=== PATIENT | male | born 1980 | race Caucasian/White ===

== ENCOUNTER 2016-10-10 10:50 | Emergency (ER) | payer BC ==
[~2016-10-10] VITALS: Ht 182.8 cm; Wt 127.0 kg
[~2016-10-10 10:50] MED LIST: ACULAR 0.5%3 ML OPH; BACTRIM DS 8001 TA1 PO; CLINDAMYCIN150 MG PO; CYCLOBENZAPRINE10 MG PO; FLEXERIL10 MG PO; KEFLEX500 MG PO; MEDROL DOSEPAK4 MG PO; MOTRIN800 MG PO; NAPROSYN500 MG PO; RITE AID ACID150 MG PO; ROBAXIN750 MG PO; TRAMADOL HCL50 MG PO; VICODIN ES 7501 TAB PO
[2016-10-10 11:47] VITALS: BP 141/84
[2016-10-10] MEDS ORDERED: Motrin,Rufen800 MG PO (12:27)
[2016-10-10] MEDS ORDERED: CLINDAMYCIN HC300 MG PO (12:27)
[2016-10-10] MEDS ORDERED: Peridex 473 ML473 ML PO (12:27)
[2016-10-10] MEDS ORDERED: LIDOCAINE VISC100 ML MM (12:27)
== END 2016-10-10 12:30 | disposition home or self-care (01) ==
LOC: ED 10:50
DX: K08.89 Other specified disorders of teeth and supporting structures (principal); F17.200 Nicotine dependence, unspecified, uncomplicated; Z88.0 Allergy status to penicillin

== ENCOUNTER 2018-09-04 05:23 | Emergency (ER) | payer BC ==
[~2018-09-04] VITALS: Ht 190.5 cm; Wt 122.5 kg
[2018-09-04 05:23] VITALS: BP 128/76
[~2018-09-04 05:23] MED LIST changes: +CLINDAMYCIN HC300 MG PO; +LIDOCAINE VISC100 ML MM; +Motrin,Rufen800 MG PO; +Peridex 473 ML473 ML PO
[2018-09-04] MEDS ORDERED: CHLORASEPTIC 1177 ML MM (05:51)
== END 2018-09-04 06:28 | disposition home or self-care (01) ==
LOC: ED 05:23
DX: J06.9 Acute upper respiratory infection, unspecified (principal); F17.200 Nicotine dependence, unspecified, uncomplicated; Z88.0 Allergy status to penicillin

== ENCOUNTER 2018-10-08 06:41 | Emergency (ER) | payer BC ==
[~2018-10-08] VITALS: Ht 185.4 cm; Wt 122.5 kg
[~2018-10-08 06:41] MED LIST changes: +CHLORASEPTIC 1177 ML MM
[2018-10-08 06:43] VITALS: BP 133/74
[2018-10-08] MEDS ORDERED: Motrin,Rufen800 MG PO (08:31)
[2018-12-17] MEDS ORDERED: XARE15TA PO (16:08)
== END 2018-10-08 08:36 | disposition home or self-care (01) ==
LOC: ED 06:41
DX: S60.221A Contusion of right hand, initial encounter (principal); Z88.0 Allergy status to penicillin; W23.0XXA Caught, crushed, jammed, or pinched between moving objects, initial encounter; Y93.89 Activity, other specified; Y92.89 Other specified places as the place of occurrence of the external cause; Y99.8 Other external cause status

== ENCOUNTER 2018-12-02 18:20 | Emergency (ER) | payer BC ==
[~2018-12-02] VITALS: Ht 185.4 cm; Wt 127.0 kg
[2018-12-02 18:21] VITALS: BP 154/84
[2018-12-17] MEDS ORDERED: XARE15TA PO (16:08)
== END 2018-12-02 20:20 | disposition home or self-care (01) ==
LOC: ED 18:20
DX: S92.324A Nondisplaced fracture of second metatarsal bone, right foot, initial encounter for closed fracture (principal); J45.909 Unspecified asthma, uncomplicated; F17.200 Nicotine dependence, unspecified, uncomplicated; Z88.0 Allergy status to penicillin; W22.8XXA Striking against or struck by other objects, initial encounter; Y93.89 Activity, other specified; Y92.89 Other specified places as the place of occurrence of the external cause; Y99.8 Other external cause status

== ENCOUNTER → 2018-12-17 | Outpatient (CLI) | payer BC ==
[~2018-12-17] MED LIST changes: +XARE15TA PO
== END | disposition home or self-care (01) ==
LOC: US 13:56
DX: I82.4Z1 Acute embolism and thrombosis of unspecified deep veins of right distal lower extremity (principal)

== ENCOUNTER 2019-04-12 09:51 | Emergency (ER) | payer BC ==
[~2019-04-12] VITALS: Ht 185.4 cm; Wt 127.0 kg
[2019-04-12 09:53] VITALS: BP 134/70
== END 2019-04-12 11:30 | disposition home or self-care (01) ==
LOC: ED 09:51
DX: T15.01XA Foreign body in cornea, right eye, initial encounter (principal); Z88.0 Allergy status to penicillin; Z79.899 Other long term (current) drug therapy; X58.XXXA Exposure to other specified factors, initial encounter; Y93.89 Activity, other specified; Y92.89 Other specified places as the place of occurrence of the external cause; Y99.8 Other external cause status

== ENCOUNTER 2019-07-24 12:30 | Emergency (ER) | payer BC ==
[~2019-07-24] VITALS: Ht 187.9 cm; Wt 127.0 kg
[2019-07-24 12:31] VITALS: BP 139/89
== END 2019-07-24 14:36 | disposition home or self-care (01) ==
LOC: ED 12:30
DX: D17.9 Benign lipomatous neoplasm, unspecified (principal); Z86.718 Personal history of other venous thrombosis and embolism; Z88.0 Allergy status to penicillin; Z79.01 Long term (current) use of anticoagulants

== ENCOUNTER 2020-10-30 23:23 | Emergency (ER) | payer SELFPAY ==
[~2020-10-30] VITALS: Ht 190.5 cm; Wt 145.1 kg
[2020-10-30 23:30] VITALS: BP 159/89
[2020-10-31] MEDS ORDERED: CLINDAMYCIN HC300 MG PO (00:18)
== END 2020-10-31 00:31 | disposition home or self-care (01) ==
LOC: ED 23:23
DX: K04.7 Periapical abscess without sinus (principal); F17.200 Nicotine dependence, unspecified, uncomplicated; Z88.0 Allergy status to penicillin

== ENCOUNTER 2023-07-07 20:42 | Emergency (ER) | payer BC ==
[~2023-07-07] VITALS: Ht 185.4 cm; Wt 140.6 kg
[2023-07-07 21:00] VITALS: BP 130/72
== END 2023-07-08 01:27 | disposition left against medical advice (07) ==
LOC: ED 20:42
DX: S62.617A Displaced fracture of proximal phalanx of left little finger, initial encounter for closed fracture (principal); Z88.0 Allergy status to penicillin; Z79.2 Long term (current) use of antibiotics; X58.XXXA Exposure to other specified factors, initial encounter; Y93.89 Activity, other specified; Y92.89 Other specified places as the place of occurrence of the external cause; Y99.8 Other external cause status

== ENCOUNTER 2025-04-07 07:39 | Emergency (ER) | payer BC ==
[~2025-04-07] VITALS: Ht 185.4 cm; Wt 136.1 kg
[2025-04-07 07:52] VITALS: BP 126/85
[2025-04-07] MEDS ORDERED: LISSAMINE GREEN 1.5 MG STRIP OP ONE (08:10)
[2025-04-07] MEDS ORDERED: diphenhydrAMINE hydrochloride 25 MG CAP PO ONE (08:15)
[2025-04-07] MEDS ORDERED: ERYTHROMYCIN OPH1 GM OPH (08:21)
== END 2025-04-07 08:27 | disposition home or self-care (01) ==
LOC: ED 07:39
DX: S05.02XA Injury of conjunctiva and corneal abrasion without foreign body, left eye, initial encounter (principal); H10.13 Acute atopic conjunctivitis, bilateral; Z88.0 Allergy status to penicillin; X58.XXXA Exposure to other specified factors, initial encounter; Y93.89 Activity, other specified; Y92.89 Other specified places as the place of occurrence of the external cause; Y99.8 Other external cause status

== ENCOUNTER → 2025-05-30 | Outpatient (CLI) | payer BC ==
[~2025-05-30] MED LIST changes: +ERYTHROMYCIN OPH1 GM OPH
[2025-05-30 10:21] LABS: BASO # 0.1 10*3/uL (0.0-0.1); BASO % 1.0 % (0.0-1.0); EOS # 0.5 10*3/uL (0.0-0.4); EOS % 6.4 % (1.0-4.0); MEAN CELL VOLUME 86.6 fl (80.0-94.0); MEAN CORPUSCULAR HGB 28.8 pg (27.0-31.0); MEAN PLATELET VOLUME 10.6 fl (9.6-12.3); MONO # 0.6 10*3/uL (0.1-1.0); MONO % 7.6 % (3.0-9.0); NEUT # 4.7 10*3/uL (2.3-7.9); NEUT % 60.1 % (47.0-73.0); NUCLEATED RED BLOOD CELL 0.0 % (0.0-0.0); NUCLEATED RED BLOOD CELL 0.0 10*3/uL (0.0-0.0); PLATELET COUNT AUTOMATED 282 10*3/uL (130-400); RED CELL DISTRI WIDTH 12.1 % (0-14.5)
[2025-05-30 10:46] LABS: BUN 14 mg/dl (9-23); FREE T4 1.23 ng/dl (0.89-1.76); LDL CHOLESTEROL 98 mg/dL (9-159); SGPT/ALT 15 U/L (5-49)
[2025-05-30 12:48] LABS: VITAMIN D, 25-HYDROXY 38.7 ng/mL (30-100)
== END | disposition home or self-care (01) ==
LOC: LAB 09:15
PROVIDERS: Internal Medicine; ATTEND Nurse Practitioner Primary Care
DX: H54.62 Unqualified visual loss, left eye, normal vision right eye (principal); E55.9 Vitamin D deficiency, unspecified; D64.9 Anemia, unspecified; E78.00 Pure hypercholesterolemia, unspecified; R73.09 Other abnormal glucose